=== PATIENT | female | born 1955 | race Caucasian/White ===

== ENCOUNTER 2025-01-16 16:26 | Emergency (ER) | payer MEDICARE, BC ==
[~2025-01-16 16:26] MED LIST: Iopamidol 370 76% 100 ML VIAL ONE
[2025-01-16 17:43] LABS: #Basophils 0.03 10x3/uL (0.0-0.2); #Eosinophils Less than 0.03 10x3/uL (0.0-0.5); #Monocytes 1.05 10x3/uL (0.0-1.1); #Neutrophils 8.24 10x3/uL (1.5-8.4); %Basophils 0.3 % (0.0-2.0); %Eosinophils 0.2 % (0.0-6.0); %Lymphocytes 8.3 % (18.0-47.0); %Monocytes 10.3 % (0.0-10.0); %Neutrophils 80.5 % (40.0-75.0); Hematocrit 30.7 % (34.9-44.5); Hemoglobin 10.8 g/dL (12.0-15.5); Mean Corpuscular Hemoglobin 30.3 pg (27.0-33.0); Mean Corpuscular Volume 86.0 fL (81.6-98.3); Platelet Count 219 10x3/uL (150-450); Red Blood Cell (RBC) Count 3.57 10x6/uL (3.90-5.03); White Blood Cell (WBC) Count 10.23 10x3/uL (3.5-10.5)
[2025-01-16 18:30] LABS: ALT (SGPT) 10 U/L (Less than 34); AST (SGOT) 16 U/L (11-34); Albumin 3.5 g/dL (3.1-4.5); Alkaline Phosphatase 60 U/L (40-110); Anion Gap 17 mmol/L (10-20); BUN (Urea Nitrogen) 14 mg/dL (9.8-20.1); Bilirubin, Total 0.8 mg/dL (0.3-1.2); Calc. Creatinine Clearance 0 mL/min (70-130); Calcium 10.4 mg/dL (7.8-10.44); Carbon Dioxide 25 mmol/L (23-31); Chloride 98 mmol/L (98-107); Globulin 3.4 g/dL (2.4-3.5); Glucose 112 mg/dL (83-110); Lipase 22 U/L (8-78); Potassium 3.2 mmol/L (3.5-5.1); Sodium 137 mmol/L (136-145)
[2025-01-16 18:36] LABS: Troponin I Less than 0.010 ng/mL (< 0.028)
[2025-01-16] MEDS ORDERED: Ketorolac Tromethamine 30 MG (1 mL) VIAL ONE (19:58)
[2025-01-16 20:02] LABS: Glucose, Urine (Dipstick) Normal (Negative); Leukocyte 500 (Negative); Protein, Urine (Dipstick) 30 mg/dl (Neg-Trace); Specific Gravity, Urine 1.010 (1.005-1.030)
[2025-01-16 20:16] LABS: Bacteria/HPF 4+ HPF (None Seen); CAUTI Indications for Culture Pelvic or flank pain; RBC/HPF 21-50 HPF (0-3); WBC/HPF Greater than 50 HPF (0-3)
[2025-01-16 20:17] LABS: Mucous/LPF 1+ LPF (<2+)
[2025-01-16 20:18] LABS: Urine Culture Reflex Yes Yes
[2025-01-16] MEDS ORDERED: cefTRIAXone (ROCEPHIN) 2 GM VIAL ONE (20:36)
== END 2025-01-16 22:39 | disposition short-term general hospital (02) ==
LOC: CSHERS 16:26
DX: N13.2 Hydronephrosis with renal and ureteral calculous obstruction (principal); I10 Essential (primary) hypertension
CPT/HCPCS: 74177; 76705; 80053; 81001; 83605; 83690; 84484; 85025; 87077; 87086; 87186; 87428; 93005; J0696; J1885; J2270; Q9967; 36415